=== PATIENT | male | born 1945 | race Caucasian/White ===

== ENCOUNTER 2016-08-16 15:20 | Outpatient (CLI) | payer OTHER ==
--- NOTE | 2016-08-16 15:54 | DIAGNOSTIC IMAGING REPORT ---
PROCEDURE: XR FOREARM - LEFT INDICATION: PAIN IN L ARM TECHNIQUE: AP and lateral views. COMPARISON: None. FINDINGS: Osseous structures are normal. Extensive vascular calcification. IMPRESSION: 1. Extensive vascular calcification. Osseous structures normal.
== END 2016-08-16 23:00 ==
LOC: XR SRH 15:20
DX: M79.602 Pain in left arm (principal); I70.208 Unspecified atherosclerosis of native arteries of extremities, other extremity